=== PATIENT | male | born 1960 | race Caucasian/White ===

== ENCOUNTER 2019-03-06 23:52 | Observation (INO) | payer OTHER ==
[2019-03-07 01:05] LABS: Protime INR 1.07
[2019-03-07 01:07] LABS: Hematocrit 45.2 % (39.6-49.0); Lymphocytes % 29.5 % (15.3-44.8); MPV 8.5 fL (7.6-11.3); RBC Red Blood Cell Count 4.76 M/uL (4.33-5.43)
[2019-03-07] MEDS ORDERED: NITROGLYCERIN 0.4 MG/TAB SL ONE (01:27)
[2019-03-07 01:31] LABS: ALT/SGPT 18 U/L (12-78); AST/SGOT 18 U/L (15-37); Albumin 4.3 g/dL (3.4-5.0); Alkaline Phosphatase 67 U/L (45-117); BUN Blood Urea Nitrogen 14 mg/dL (7-18); Bicarbonate 30 mmol/L (21-32); Bilirubin Direct 0.1 mg/dL (0-0.2); Bilirubin Total 0.5 mg/dL (0.2-1.0); Glucose Level 86 mg/dL (74-106); Magnesium 2.1 mg/dL (1.8-2.4); NT PRO-BNP 48 pg/mL (<125); Potassium 3.7 mmol/L (3.5-5.1); Protein, Total 7.6 g/dL (6.4-8.2); Sodium Level 136 mmol/L (136-145); Troponin (Emerg Dept Use Only) < 0.02 ng/mL (0.0-0.045)
[2019-03-07] MEDS ORDERED: ACETAMINOPHEN 500 MG TAB PO PRN (03:35)
[2019-03-07] MEDS ORDERED: MORPHINE 4 MG/ML SYR IV PRN (03:35)
[2019-03-07 04:43] VITALS: O2SAT 97
--- NOTE | 2019-03-07 05:45 | EDPHYS ---
Physician Documentation [facility] Name: Mikhail Herrera Age: 58 yrs Sex: Male : 1960 Arrival Date: 03/06/2019 Time: 23:54 Bed 8 Private MD: ED Physician Tolu Hadley HPI: 03/07 02:50 This 58 yrs old Male presents to ER via Ambulatory with complaints of Chest Pain. tw4 02:50 The patient or guardian reports chest pain that is located primarily in the anterior tw4 chest wall. Onset: today. The pain does not radiate. Associated signs and symptoms: The patient has no apparent associated signs or symptoms. The chest pain is described as dull. Duration: The patient or guardian reports a single episode. Severity of pain: At its worst the pain was moderate in the emergency department the pain is unchanged. The patient has not experienced similar symptoms in the past. Historical: - Allergies: 00:19 No Known Allergies; rv - PMHx: 00:19 Cancer; Fibromyalgia; Hypertension; rv - PSHx: 00:19 Tonsillectomy; rv - Immunization history:: Adult Immunizations not up to date. - Coronavirus screen:: The patient has NOT traveled to [place], [place], or [place] in the past 14 days. Proceed with normal triage process as indicated. The patient has NOT had contact with known/suspected case of Coronavirus? Proceed with normal triage procedures. - Social history:: Smoking status: Patient reports the use of cigarette tobacco products, smokes one pack cigarettes per day. - Ebola Screening: : No symptoms or risks identified at this time. ROS: 02:48 Constitutional: Negative for fever, chills, and weight loss, Eyes: Negative for injury, tw4 pain, redness, and discharge, Respiratory: Negative for shortness of breath, cough, wheezing, and pleuritic chest pain, Abdomen/GI: Negative for abdominal pain, nausea, vomiting, diarrhea, and constipation, Back: Negative for injury and pain. 02:48 MS/Extremity: Negative for injury and deformity, Skin: Negative for injury, rash, and discoloration, Neuro: Negative for headache, weakness, numbness, tingling, and seizure. 02:48 Cardiovascular: Positive for chest pain, Negative for edema, orthopnea, palpitations, paroxysmal nocturnal dyspnea. Exam: 02:48 Constitutional: This is a well developed, well nourished patient who is awake, alert, tw4 and in no acute distress. Head/Face: Normocephalic, atraumatic. Chest/axilla: Normal chest wall appearance and motion. Nontender with no deformity. No lesions are appreciated. Cardiovascular: Regular rate and rhythm with a normal S1 and S2. No gallops, murmurs, or rubs. Normal PMI, no JVD. No pulse deficits. Respiratory: Lungs have equal breath sounds bilaterally, clear to auscultation and percussion. No rales, rhonchi or wheezes noted. No increased work of breathing, no retractions or nasal flaring. Abdomen/GI: Soft, non-tender, with normal bowel sounds. No distension or tympany. No guarding or rebound. No evidence of tenderness throughout. Back: No spinal tenderness. No costovertebral tenderness. Full range of motion. MS/ Extremity: Pulses equal, no cyanosis. Neurovascular intact. Full, normal range of motion. Neuro: Awake and alert, GCS 15, oriented to person, place, time, and situation. Cranial nerves II-XII grossly intact. Motor strength 5/5 in all extremities. Sensory grossly intact. Cerebellar exam normal. Normal gait. Vital Signs: 00:17 BP 168 / 91; Pulse 61; Resp 13; Temp 98.4; Pulse Ox 100% ; Weight 58.51 kg; Pain 6/10; rv 00:30 BP 177 / 89; Pulse 57; Resp 16; Pulse Ox 98% on R/A; rv 01:00 BP 144 / 95; Pulse 71; Resp 18; Pulse Ox 99% ; rv 01:30 BP 153 / 105; Pulse 71; Resp 18; Pulse Ox 99% on R/A; rv MDM: 00:20 Patient medically screened. tw4 02:59 Differential diagnosis: acute myocardial infarction, acute pericarditis, coronary tw4 artery disease myocarditis, pericarditis, pneumonia, pulmonary embolus, stable angina, unstable angina. HEART Score: History: Moderately Suspicious (1), ECG: Normal (0), Age: Risk Factors: No Risk Factors Known (0), Troponin: < or = 1 x Normal Limit (0). The patient was given aspirin in the Emergency Department. Data reviewed: vital signs, nurses notes. Data interpreted: Pulse oximetry: Interpretation: normal. Counseling: I had a detailed discussion with the patient and/or guardian regarding: the historical points, exam findings, and any diagnostic results supporting the discharge/admit diagnosis, lab results, radiology results. Physician consultation: Ana Laura Lin MD regarding admission, to the telemetry unit. patient's condition, and will see patient in ED. 03/07 00:07 Order name: Basic Metabolic Panel; Complete Time: 02:10 03/07 02:16 Interpretation: Normal except: GFR 88. 03/07 00:07 Order name: CBC with Diff; Complete Time: 02:10 03/07 02:16 Interpretation: Within normal limits. 03/07 00:07 Order name: LFT's; Complete Time: 02:10 03/07 02:16 Interpretation: Within normal limits. 03/07 00:07 Order name: Magnesium; Complete Time: 02:10 03/07 02:16 Interpretation: Within normal limits: MG 2.1. 03/07 00:07 Order name: PT-INR; Complete Time: 02:10 03/07 02:16 Interpretation: Normal except: PT 12.6. 03/07 00:07 Order name: Troponin (emerg Dept Use Only); Complete Time: 02:10 03/07 02:16 Interpretation: Within normal limits: TROPED < 0.02. 03/07 00:07 Order name: XRAY Chest (1 view) tw 03/07 01:37 Order name: NT PRO-BNP; Complete Time: 02:10 [facility] 03/07 02:16 Interpretation: Within normal limits: NT PRO-BNP 48. 03/07 05:37 Order name: Echo with Doppler EDFL 03/07 05:37 Order name: Troponin I EDFL 03/07 05:37 Order name: Troponin I EDFL 03/07 05:37 Order name: Troponin I EDFL 03/07 14:26 Order name: NM EDFL 03/07 00:07 Order name: EKG; Complete Time: 00:09 03/07 00:07 Order name: Cardiac monitoring; Complete Time: 00:15 03/07 00:07 Order name: EKG - Nurse/Tech; Complete Time: 00:15 03/07 00:07 Order name: IV Saline Lock; Complete Time: 00:28 03/07 00:07 Order name: Labs collected and sent; Complete Time: 00:03/07 00:07 Order name: O2 Per Protocol; Complete Time: 00:4 03/07 00:07 Order name: O2 Sat Monitoring; Complete Time: 00:28 4 03/07 05:37 Order name: CONS Physician Consult EDFL 03/07 05:37 Order name: Heart Healthy EDFL 03/07 05:37 Order name: EKG Electrocardiogram EDMS 03/07 05:37 Order name: EKG Electrocardiogram EDFL EC:50 Rate is 56 beats/min. Rhythm is regular, Sinus bradycardia. QRS [place] is Normal. IN tw4 interval is normal. QRS interval is normal. QT interval is normal. No Q waves. T waves are Peaked in leads V2, V3, V4, V5, V6. No ST changes noted. Clinical impression: NSR w/ Non-specific ST/T Changes and Sinus bradycardia. Interpreted by me. Reviewed by me. Administered Medications: 01:25 Drug: Nitroglycerin 0.4 mg Route: Sublingual; rv 01:30 Drug: Nitroglycerin 0.4 mg Route: Sublingual; rv 03:05 Follow up: Response: Pain is decreased rv 03:05 Drug: Lovenox 1 mg/kg Route: Sub-Q; Site: abdomen; rv 04:06 Follow up: Response: No adverse reaction rv Disposition: 03/07/19 02:12 Hospitalization ordered by Ana Laura Lin for Inpatient Admission. Preliminary diagnosis are Angina pectoris, unspecified, Acute coronary syndrome. - Bed requested for Telemetry/MedSurg (Inpatient). - Status is Inpatient Admission. jl7 - Condition is Stable. - Problem is new. - Symptoms have improved. UTI on Admission? No Signatures: Dispatcher [employer] [facility] Sherry Carpenter RN RN dw Loretta Silva RN RN jl7 Tolu Hadley MD MD tw4 Joshua Huber RN RN rv Corrections: (The following items were deleted from the chart) 01:36 00:09 PROBNP+C.LAB.BRZ ordered. [facility] 03:41 02:12 Hospitalization Ordered by Ana Laura Lin MD for Inpatient Admission. Preliminary dw diagnosis is Angina pectoris, unspecified; Acute coronary syndrome. Bed requested for Telemetry/MedSurg (Inpatient). Status is Inpatient Admission. Condition is Stable. Problem is new. Symptoms have improved. UTI on Admission? No. tw4 13:53 03:41 03/07/2019 02:12 Hospitalization Ordered by Ana Laura Lin MD for Inpatient dw Admission. Preliminary diagnosis is Angina pectoris, unspecified; Acute coronary syndrome. Bed requested for [facility] ER HOLD. Status is Inpatient Admission. Condition is Stable. Problem is new. Symptoms have improved. UTI on Admission? No. dw 15:00 13:53 03/07/2019 02:12 Hospitalization Ordered by Ana Laura Lin MD for Inpatient jl7 Admission. Preliminary diagnosis is Angina pectoris, unspecified; Acute coronary syndrome. Bed requested for Telemetry/MedSurg (Inpatient). Status is Inpatient Admission. Condition is Stable. Problem is new. Symptoms have improved. UTI on Admission? No. dw
--- NOTE | 2019-03-07 05:45 | ER ---
Nurse's Notes [facility] Name: Mikhail Herrera Age: 58 yrs Sex: Male : 1960 Arrival Date: 03/06/2019 Time: 23:54 Bed 8 Private MD: Diagnosis: Angina pectoris, unspecified;Acute coronary syndrome Presentation: 03/07 00:16 Presenting complaint: Patient states: CHEST PAIN STARTED AT AROUND 10PM LAST NIGHT. ON rv OFF TIGHTNESS. AND MY NECK IS SORE ON THE LEFT SIDE AND ALSO MY LEFT ARM, AND HEADACHE. DENIES NAUSEA/VOMITING. Transition of care: patient was not received from another setting of care. Onset of symptoms was March 06, 2019 at 22:00. Risk Assessment: Do you want to hurt yourself or someone else? Patient reports no desire to harm self or others. Initial Sepsis Screen: Does the patient meet any 2 criteria? No. Patient's initial sepsis screen is negative. Does the patient have a suspected source of infection? No. Patient's initial sepsis screen is negative. Care prior to arrival: None. 00:16 Method Of Arrival: Ambulatory rv 00:16 Acuity: BC 3 rv Triage Assessment: 01:00 General: Appears in no apparent distress. Behavior is calm, cooperative. Pain: rv Complains of pain in chest. Historical: - Allergies: 00:19 No Known Allergies; rv - PMHx: 00:19 Cancer; Fibromyalgia; Hypertension; rv - PSHx: 00:19 Tonsillectomy; rv - Immunization history:: Adult Immunizations not up to date. - Coronavirus screen:: The patient has NOT traveled to [place], [place], or [place] in the past 14 days. Proceed with normal triage process as indicated. The patient has NOT had contact with known/suspected case of Coronavirus? Proceed with normal triage procedures. - Social history:: Smoking status: Patient reports the use of cigarette tobacco products, smokes one pack cigarettes per day. - Ebola Screening: : No symptoms or risks identified at this time. Screenin:59 Abuse screen: Denies threats or abuse. Denies injuries from another. Nutritional rv screening: No deficits noted. Tuberculosis screening: No symptoms or risk factors identified. Fall Risk None identified. Assessment: 00:58 Pain: Complains of pain in chest Pain radiates to NECK AND LEFT ARM Pain began 3 hours rv ago. Neuro: Level of Consciousness is awake, alert, obeys commands, Oriented to person, place, time, situation. Cardiovascular: Patient's skin is warm and dry. Rhythm is regular. Respiratory: Airway is patent. Derm: Skin is intact. 01:32 Reassessment: Patient appears in no apparent distress at this time. PATIENT COMPLAINING rv OF CHEST DISCOMFORT/TIGHTNESS AND LEFT ARM PAIN. GIVEN NITRO SUBLINGUAL. Vital Signs: 00:17 BP 168 / 91; Pulse 61; Resp 13; Temp 98.4; Pulse Ox 100% ; Weight 58.51 kg; Pain 6/10; rv 00:30 BP 177 / 89; Pulse 57; Resp 16; Pulse Ox 98% on R/A; rv 01:00 BP 144 / 95; Pulse 71; Resp 18; Pulse Ox 99% ; rv 01:30 BP 153 / 105; Pulse 71; Resp 18; Pulse Ox 99% on R/A; rv ED Course: 03/06 23:54 Patient arrived in ED. ag3 03/07 00:07 Tolu Hadley MD is Attending Physician. tw4 00:09 Joshua Huber RN is Primary Nurse. rv 00:17 Triage completed. rv 00:19 Arm band placed on Patient placed in the treatment room, on a stretcher, Patient rv notified of wait time. 00:30 Inserted saline lock: 20 gauge in left antecubital area, using aseptic technique. Blood ar5 collected. 01:00 Patient has correct armband on for positive identification. Placed in gown. Bed in low rv position. Call light in reach. hospital monitor on. Pulse ox on. NIBP on. 01:00 Patient maintains SpO2 saturation greater than 95% on room air. rv 01:23 XRAY Chest (1 view) In Process Unspecified. EDMS 02:10 Ana Laura Lin MD is Hospitalizing Provider. tw4 04:02 No provider procedures requiring assistance completed. Patient admitted, IV remains in rv place. Administered Medications: 01:25 Drug: Nitroglycerin 0.4 mg Route: Sublingual; rv 01:30 Drug: Nitroglycerin 0.4 mg Route: Sublingual; rv 03:05 Follow up: Response: Pain is decreased rv 03:05 Drug: Lovenox 1 mg/kg Route: Sub-Q; Site: abdomen; rv 04:06 Follow up: Response: No adverse reaction rv Outcome: 02:12 Decision to Hospitalize by Provider. tw4 04:05 Admitted to ER Hold. Please see [facility] for further documentation. rv 04:05 Condition: good 04:05 Discharge instructions given to patient, Instructed on the need for admit, Demonstrated understanding of instructions. 15:00 Patient left the ED. jl7 Signatures: Dispatcher [employer] EDMS Zari Pinto, hand alterations seamstress EKG Tat1 Loretta Silva RN RN jl7 Tolu Hadley MD MD tw4 Joshua Huber RN RN rv Alexandra Tran ag3 Amberly Washington ar5 Corrections: (The following items were deleted from the chart) 10:50 10:50 EKG done, by application technician. reviewed by Miguel A Torres MD at1 at1
[2019-03-07] MEDS ORDERED: METOPROLOL TAR 50 MG TAB PO SCH (06:00)
[2019-03-07] MEDS: ALPRAZOLAM 0.25 MG TABLET PO PRN ×2 (06:12→16:59)
[2019-03-07] MEDS ORDERED: METOPROLOL TAR 25 MG TAB ONE (06:14)
--- NOTE | 2019-03-07 06:45 | EKG ---
Test Date: 2019-03-07 Test Time: 00:09:07 Warehouse Processor: ORLANDA MEASUREMENT RESULTS: Intervals: Rate: 56 AR: 172 QRSD: 76 QT: 416 QTc: 401 [place]: P: 77 AR: 172 QRS: 68 T: 72 INTERPRETIVE STATEMENTS: Sinus bradycardia Minimal voltage criteria for LVH, may be normal variant Borderline ECG No previous ECG available for comparison Electronically Signed On 03-07-19 06:44:59 CONSULTATIVE SALES ASSOCIATE by Kevin Andrews
[2019-03-07] MEDS ORDERED: REGADENOSON 0.4 MG/5 ML SYR IV ONE (08:17)
--- NOTE | 2019-03-07 08:23 | RAD REPORT ---
EXAM DESCRIPTION: Rohan Single View03/07/2019 12:28 am CLINICAL HISTORY: Chest pain COMPARISON: none FINDINGS: Bilateral upper lobe volume loss. Lungs are hyperaerated. The lungs appear clear of acute infiltrate. The heart is normal size IMPRESSION: Bilateral upper lobe volume loss presumably chronic. Hyperaerated lungs indicate COPD If patient's symptoms persist PA and lateral chest series would be recommended
[2019-03-07] MEDS ORDERED: ASPIRIN EC 81 MG TAB PO ONE (08:54)
[2019-03-07] MEDS ORDERED: ENOXAPARIN 40 MG/0.4 ML SQ ONE (08:54)
[2019-03-07] MEDS ORDERED: ENOXAPARIN 40 MG/0.4 ML SQ SCH ×2 (09:00→21:00)
[2019-03-07] MEDS ORDERED: ASPIRIN EC 81 MG TAB PO SCH (09:00)
--- NOTE | 2019-03-07 14:08 | ECHO ---
HEIGHT: 5 ft 5 in WEIGHT: 58 lb 8.16 oz DATE OF STUDY: 03/07/[address]: Ana Laura Lin MD 2-DIMENSIONAL: YES M.MODE: YES DOPPLER: YES COLOR FLOW: YES TDS: NO PORTABLE: NO DEFINITY: NO BUBBLE STUDY: NO DIAGNOSIS: CHEST PAIN CARDIAC HISTORY: CATHERIZATION: YES SURGERY: NO PROSTHETIC VALVE: NO PACEMAKER: NO MEASUREMENTS (cm) DIASTOLIC (NORMALS) SYSTOLIC (NORMALS) IVSd 0.8 (0.6-1.2) LA Diam 2.8 (1.9-4.0) LVEF 68% LVIDd 3.7 (3.5-5.7) LVIDs 2.3 (2.0-3.5) %FS 37% LVPWd 0.8 (0.6-1.2) Ao Diam 2.6 (2.0-3.7) 2 DIMENSIONAL ASSESSMENT: RIGHT ATRIUM: NORMAL LEFT ATRIUM: NORMAL RIGHT VENTRICLE: NORMAL LEFT VENTRICLE: NORMAL TRICUSPID VALVE: NORMAL MITRAL VALVE: NORMAL PULMONIC VALVE: NORMAL AORTIC VALVE: NORMAL PERICARDIAL EFFUSION: NONE AORTIC ROOT: NORMAL LEFT VENTRICULAR WALL MOTION: NORMAL. DOPPLER/COLOR FLOW: NORMAL. COMMENTS: NORMAL 2D ECHO WITH DOPPLER. NO WALL MOTION ABNORMALITY. NO EFFUSION. TECHNOLOGIST: DENISE AGUILAR
--- NOTE | 2019-03-07 14:20 | RAD REPORT ---
EXAM DESCRIPTION: NM - Rest Stress Cardiac Imaging - 03/07/2019 2:10 pm CLINICAL HISTORY: Chest pain. COMPARISON: None. TECHNIQUE: The patient was administered approximately 10mCi of Tc 99m Sestamibi prior to resting SPE CT imaging of the heart. The patient was then administered approximately 30 mCi of Tc 99m Sestamibi f ollowing exercise or pharmacologic stress. Multiplanar SPECT images were reviewed. FINDINGS: Small area of diminished radiotracer uptake involves the inferior left ventricular myocar dium on rest and stress images. Most likely this is secondary to attenuation from the diaphragm. Remainder of the left ventricular myocardium demonstrates normal radiotracer uptake on rest and stres s sequences. The left ventricular ejection fraction equals 56% IMPRESSION: Negative for a myocardial perfusion defect
--- NOTE | 2019-03-07 14:30 | CON ---
Date of Consultation: 03/07/2019 The patient was admitted on 03/07/[address] Lin. I saw the patient on 03/07/2019. Reason For Consultation: Chest pain. History Of Present Illness: The patient is a 58-year-old male, has a history of hypertension, fibrom yalgia, and head and neck cancer that has been treated and cured. He comes in with chest pain that i s midepigastric, sharp, stabbing, radiating to the back without any nausea, vomiting, diaphoresis, PN D, orthopnea, pedal edema, palpitation, or syncope. Apparently at home, his pressure was 212. Allergies: NEGATIVE. Review of Systems: Negative. Social History: Positive for history of tobacco use. Medications: At home are none. Physical Examination: Vital Signs: Stable. Afebrile. HEENT: Negative. Neck: Supple with no bruit. Chest: Clear to auscultation and percussion. Cardiac: Revealed a regular rhythm and rate. No murmurs, gallops, or rubs. Abdomen: Benign. Extremities: Revealed no clubbing, cyanosis, or edema. Diagnostic Data: EKG was normal. Troponin was negative. Impression And Plan: 1.Chest pain, atypical, most likely secondary to hypertension. 2.History of cancer, ear, nose and throat. 3.Fibromyalgia. An echocardiogram and Lexiscan have been ordered on Mr. Herrera. We will see w hat those show prior to making final decisions. He should be going home on some antihypertensive the rapy, either a beta ginger or an ANAID inhibitor. NB/MODL Voice ID: [id number] Report ID: [id number]
[2019-03-07] MEDS ORDERED: HYDROCODONE/APAP 5/325 MG TAB PO PRN (16:55)
--- NOTE | 2019-03-07 17:42 | P.DS ---
Admission Date: 03/07/19 Discharge Date: 03/07/19 Disposition: ROUTINE DISCHARGE Discharge Condition: GOOD Consultations: Cardiology - Problems (1) Hypertension Current Visit: Yes Status: Acute (2) History of cancer Current Visit: Yes Status: Acute Brief History of Present Illness: 58-year-old gentleman presented to the emergency department with a complaint of chest pain radiating to involve his left arm and left neck and the back.He reports a history of fibromyalgia. Initial troponin in the ED was negative. EKG demonstrated sinus bradycardia, no ischemic changes Patient was placed under observation for acute coronary syndrome rule out. Hospital Course: He was placed under observation in telemetry. Troponin trended came back negative. Patient was evaluated by cardiology. Nuclear stress test and echocardiogram were performed which were negative for ischemia. His blood pressure was severely elevated in the ED. He was given 2 sublingual nitroglycerin in the ED which improved his blood pressure. Noted patient has bradycardia. Patient is on lisinopril 10 mg daily which has been increased to 20 mg daily to control his blood pressure. Patient deemed clinically stable for discharge per cardiology. He is also discharged with daily aspirin Vital Signs/Physical Exam: Temp Pulse Resp BP Pulse Ox 97.8 F 51 15 157/94 H 99 03/07/19 12:00 03/07/19 12:00 03/07/19 12:00 03/07/19 12:00 03/07/19 12:00 General: Alert, In no apparent distress, Oriented x3 HEENT: Mucous membr. moist/pink, Sclerae nonicteric Neck: Supple, JVD not distended Respiratory: Clear to auscultation bilaterally, Normal air movement Cardiovascular: No edema, Regular rate/rhythm, Normal S1 S2 Capillary refill: <2 Seconds Gastrointestinal: Normal bowel sounds, Soft and benign, No tenderness Musculoskeletal: No swelling, No erythema Integumentary: No rashes Neurological: Normal speech, Normal strength at 5/5 x4 extr Laboratory Data at Discharge: WBC 6.7 K/uL (4.3-10.9) 03/07/19 00:27 Hgb 15.3 g/dL (13.6-17.9) 03/07/19 00:27 Hct 45.2 % (39.6-49.0) 03/07/19 00:27 Plt Count 272 K/uL (152-406) 03/07/19 00:27 PT 12.6 SECONDS (9.5-12.5) H 03/07/19 00:27 INR 1.07 03/07/19 00:27 Sodium 136 mmol/L (136-145) 03/07/19 00:27 Potassium 3.7 mmol/L (3.5-5.1) 03/07/19 00:27 BUN 14 mg/dL (7-18) 03/07/19 00:27 Creatinine 0.89 mg/dL (0.55-1.3) 03/07/19 00:27 Glucose 86 mg/dL (74-106) 03/07/19 00:27 Magnesium 2.1 mg/dL (1.8-2.4) 03/07/19 00:27 Total Bilirubin 0.5 mg/dL (0.2-1.0) 03/07/19 00:27 AST 18 U/L (15-37) 03/07/19 00:27 ALT 18 U/L (12-78) 03/07/19 00:27 Alkaline Phosphatase 67 U/L (45-117) 03/07/19 00:27 Troponin I < 0.02 ng/mL (0.0-0.045) 03/07/19 11:56 Home Medications: Aspirin [Aspirin EC 81 MG] 81 mg PO DAILY #30 tablet. 03/07/19 lisinopriL [Lisinopril] 20 mg PO DAILY #30 tablet 03/07/19 New Medications: Aspirin [Aspirin EC 81 MG] 81 mg PO DAILY #30 tablet. lisinopriL [Lisinopril] 20 mg PO DAILY #30 tablet Diet: [facility] Activity: Ad arjeev
[2019-03-07 18:03] VITALS: BP 135/87; TEMP 98.7
--- NOTE | 2019-03-08 12:54 | P.HP ---
Certification for Inpatient Patient admitted to: Observation With expected LOS: <2 Midnights Patient will require the following post-hospital care: None Practitioner: I am a practitioner with admitting privileges, knowledge of patient current condition, hospital course, and medical plan of care. Services: Services provided to patient in accordance with Admission requirements found in Title 42 Section 412.3 of the Code of Federal Regulations Patient History Date of Service: 03/07/19 Reason for admission: CHEST PAIN RULE OUT ACUTE MYOCARDIAL INFARCTION History of Present Illness: PATIENT IS A 58-YEAR-OLD GENTLEMAN WHO CAME TO THE HOSPITAL WITH CHEST DISCOMFORT. PATIENT HAS A HISTORY OF SQUAMOUS CELL CARCINOMA AND HYPERTENSION AND HAS BEEN FOLLOWING UP WITH HIS ONCOLOGIST WHO HAS PRESCRIBED HIS MEDICATIONS. PATIENT CAME TO THE HOSPITAL FOR FURTHER EVALUATION. IN THE ER PATIENT'S INITIAL TROPONINS AND EKG HAVE BEEN NEGATIVE. HIS BLOOD PRESSURE ARE ELEVATED. PATIENT WILL BE ADMITTED TO THE HOSPITAL FOR FURTHER EVALUATION. Allergies No Known Allergies Allergy (Unverified 03/07/19 06:32) Home Medications: Aspirin [Aspirin EC 81 MG] 81 mg PO DAILY #30 tablet. 03/07/19 lisinopriL [Lisinopril] 20 mg PO DAILY #30 tablet 03/07/19 - Past Medical/Surgical History Diabetic: No -: cancer -: fibromyalgia -: hypertension -: tonsillectomy - Family History Father Family History: Reviewed- Non-Contributory - Social History Smoking Status: Current every day smoker Place of Residence: Home Review of Systems 10-point ROS is otherwise unremarkable Physical Examination - Vital Signs Temperature: 98.7 F Blood Pressure: 135/87 Pulse: 57 Respirations: 20 Pulse Ox (%): 96 - Physical Exam General: Alert, In no apparent distress, Oriented x3 HEENT: Atraumatic, PERRLA, Mucous membr. moist/pink, EOMI, Sclerae nonicteric Neck: Supple, 2+ carotid pulse no bruit, No LAD, Without JVD or thyroid abnormality Respiratory: Clear to auscultation bilaterally, Normal air movement Cardiovascular: Regular rate/rhythm, Normal S1 S2, No murmurs Gastrointestinal: Normal bowel sounds, Soft and benign, Non-distended, No tenderness Musculoskeletal: No clubbing, No swelling, No tenderness Integumentary: No rashes Neurological: Normal gait, Normal speech, Normal strength at 5/5 x4 extr, Normal tone, Normal affect Lymphatics: No axilla or inguinal lymphadenopathy Assessment & Plan - Problems (Diagnosis) (1) Chest pain, rule out acute myocardial infarction Status: Acute (2) History of cancer Status: Acute (3) Hypertension Status: Acute - Plan 1. SERIAL TROPONINS AND EKG 2. CARDIOLOGY CONSULTATION 3. ECHOCARDIOGRAM AND INPATIENT STRESS TEST(PENDING CARDIOLOGY EVALUATION) 4. ANTI-PLATELET THERAPY, ANTI COAGULATION, BETA-DAVID, STATIN, AND O2 NEEDED 5. IV MORPHINE FOR PAIN 6. NITRO P.R.N. Discharge Plan: Home Plan to discharge in: 24 Hours - Advance Directives Does patient have a Living Will: No Does patient have a Durable POA for Healthcare: No - Code Status/Comfort Care Code Status Assessed: Yes Code Status: Full Code Critical Care: No Time Spent Managing PTS Care (In Minutes): 40
--- NOTE | 2019-03-08 13:49 | TREADPHA ---
DX: CHEST PAIN Date of Study: 03/07/2019 Ht: 5 5 Wt: 58 lb 8.16 oz Consulting Physician: ANALILIA MEDICATIONS: TYLENOL, ASPIRIN, LOVENOX, LOPRESSOR, NITROSTAT, LEVOTHROXINE, LISINOPRIL HISTORY: 58 YEAR OLD MALE WITH HISTORY OF HYPERTENSION, HYPOTHYROIDISM. PRESTENTED WITH EPISODE OF CHEST PAIN THAT RESOLVED. PHYSICIAL EXAMINATION: RESTING B.P.: 178/87 RESTING H.R.: 49 RESTING EKG: SINUS BRADYCARDIA PROTOCOL: LEXISCAN EXERCISE TIME: 3:30 B.P. AT PEAK STRESS: 133/89 IMPRESSION: LEXISCAN STRESS TEST PERFORMED. CARDIOLITE INJECTED PER PROTOCOL. NO SUPRAVENTRICULAR TACHYCARDIA, VENTRICULAR TACHYCARDIA, OR ARRYTHMIAS NOTED. PATIENT DENIED CHEST PAIN. TOLERATED WELL. PLEASE SEE NUCLEAR MEDICINE REPORT.
== END 2019-03-07 18:12 | disposition home or self-care (01) ==
LOC: ER 23:52 → ERHOLD 03-07 04:26 → 2ND 03-07 14:49
PROVIDERS: ADMIT Hospitalist; ATTEND Hospitalist
DX: R07.9 Chest pain, unspecified (principal); I10 Essential (primary) hypertension; M79.7 Fibromyalgia; Z85.828 Personal history of other malignant neoplasm of skin
CPT/HCPCS: 93005; 93017; 93306; 85025; 80048; 36415; 83735; 85610; 80076; 84484 ×3; 83880; 71045; 78452; 96372; 99285; J1650; J2785; A9500; G0378 ×2

== ENCOUNTER 2019-03-26 13:15 | Emergency (ER) | payer OTHER ==
--- OUTSIDE RECORDS SUMMARY | 2019-03-26 13:18 | XMS REPORT ---
:1960 [facility] Address [address] [place] [address] [address] Care Team Providers Name Role Phone ZENAIDA HOLDER Unavailable Unavailable Problems This patient has no known problems. Allergies, Adverse Reactions, Alerts This patient has no known allergies or adverse reactions. Medications This patient has no known medications. Results Test Description Test Time Test Comments Text Results Atomic Results Result Comments [facility] [address] [place] [address] Patient Name: SADIQ FALLON MR #: [id number] : 1960 Age/Sex: 56/M Acct #: VIEWS [id number] Req #: [id number] Adm Physician: Ordered by: ZENAIDA HOLDER MD Report #: [id number] Location: ER Room/Bed: _ Procedure: [id number] DX/KNEE LEFT THREE VIEWS Exam Date: 12/19/16 Exam Time: 1015 REPORT STATUS: Signed PROCEDURE: KNEE LEFT THREE VIEWS COMPARISON: None. INDICATIONS: RIGHT KNEE PAIN FROM INJURY FINDINGS: There are no fractures, dislocations, lytic or blastic lesions. The bones are well-mineralized. The soft-tissues are unremarkable. CONCLUSION: No acute radiographic abnormality. Dictated by: Crow Mejias M.D. on 12/19/2016 at 11:03 Electronically approved by: Crow Mejias M.D. on 12/19/2016 at 11:03 Dictated By: CROW MEJIAS MD 02 Transcribed By: KAMILLE on 12/19/161102 COPY TO: ZENAIDA HOLDER MD
--- NOTE | 2019-03-26 14:34 | ER ---
Nurse's Notes [facility] Name: Mikhail Herrera Age: 58 yrs Sex: Male : 1960 Arrival Date: 03/26/2019 Time: 13:17 Bed 28 Private MD: Diagnosis: Radiculopathy, cervical region Presentation: 03/26 13:29 Presenting complaint: Patient states: I have an old neck and back surgery, a few years ca1 after I had radiation on my upper body that messed with my bones. I have been having neck pains and headaches for about a year more on the last few months. I can't sleep. I turn my neck and it seems to to send an electric shock on my neck across my head all the way to the front. I have a schedule with a neurologist on the next month but I can't take it anymore. It is causing my BP to be high. Transition of care: patient was not received from another setting of care. Onset of symptoms was March 26, 2019. Risk Assessment: Do you want to hurt yourself or someone else? Patient reports no desire to harm self or others. Initial Sepsis Screen: Does the patient meet any 2 criteria? No. Patient's initial sepsis screen is negative. Does the patient have a suspected source of infection? No. Patient's initial sepsis screen is negative. Care prior to arrival: None. 13:29 Method Of Arrival: Ambulatory ca1 13:29 Acuity: BC 3 ca1 Triage Assessment: 14:19 General: Appears uncomfortable, Behavior is calm, cooperative. Pain: Complains of pain ls4 in neck Pain currently is 10 out of 10 on a pain scale. Neuro: No deficits noted. Cardiovascular: Denies chest pain, Heart tones S1 S2. Respiratory: Airway is patent Respiratory effort is even, unlabored, Musculoskeletal: Circulation, motion, and sensation intact. Capillary refill < 3 seconds, Range of motion: intact in all extremities. Historical: - Allergies: 13:37 No Known Allergies; ca1 - Home Meds: 13:37 Lisinopril Oral [Active]; levothyroxine oral [Active]; Hydroxyline [Active]; ca1 - PMHx: 13:37 Cancer; Fibromyalgia; Hypertension; ca1 - PSHx: 13:37 Tonsillectomy; ca1 - Immunization history:: Adult Immunizations up to date, Pneumococcal vaccine is not up to date, patient has never been vaccinated Flu vaccine is not up to date. - Coronavirus screen:: The patient has NOT traveled to [place] in the past 14 days. The patient has NOT had contact with known/suspected case of Coronavirus?. - Social history:: Smoking status: Patient reports the use of cigarette tobacco products, smokes one-half pack cigarettes per day. - Family history:: not pertinent. - Ebola Screening: : Patient negative for fever greater than or equal to 101.5 degrees Fahrenheit, and additional compatible Ebola Virus Disease symptoms Patient denies exposure to infectious person Patient denies travel to an Ebola-affected area in the 21 days before illness onset No symptoms or risks identified at this time. - Hospitalizations: : No recent hospitalization is reported. Screenin:54 Abuse screen: Denies threats or abuse. Denies injuries from another. Nutritional ls4 screening: No deficits noted. Tuberculosis screening: No symptoms or risk factors identified. Fall Risk None identified. Assessment: 14:40 Neuro: Level of Consciousness is awake, alert, obeys commands, Oriented to person, ls4 place, time, situation, Meteorological Equipment Repairer are equal bilaterally Moves all extremities. Gait is steady, Speech is normal, Facial symmetry appears normal, Pupils are PERRLA, Intact Reports neck pain . Cardiovascular: Clubbing of nail beds is present. Respiratory: Musculoskeletal: Circulation, motion, and sensation intact. Capillary refill < 3 seconds, Range of motion: intact in all extremities. Vital Signs: 13:37 BP 172 / 92; Pulse 71; Resp 16 S; Temp 97.8(O); Pulse Ox 100% on R/A; Weight 58.97 kg ca1 (R); Height 5 ft. 8 in. (172.72 cm) (R); Pain 10/10; 13:37 Body Mass Index 19.77 (58.97 kg, 172.72 cm) ca1 ED Course: 13:17 Patient arrived in ED. rg4 13:34 Triage completed. ca1 13:37 Arm band placed on right wrist. ca1 13:53 Sharlene Kolb, RN is Primary Nurse. ls4 13:54 Patient has correct armband on for positive identification. Bed in low position. Call ls4 light in reach. Side rails up X 1. 13:54 No provider procedures requiring assistance completed. ls4 14:16 Miguel A Torres MD is Attending Physician. rn 14:31 Uvaldo Wilburn MD is Referral Physician. rn 14:40 Patient did not have IV access during this emergency room visit. ls4 Administered Medications: No medications were administered Outcome: 14:32 Discharge ordered by MD. rn 14:40 Discharged to home ambulatory. ls4 14:40 Condition: good 14:40 Discharge instructions given to patient, Instructed on discharge instructions, follow up and referral plans. medication usage, safety practices, Demonstrated understanding of instructions, follow-up care, medications, Prescriptions given X 3. 14:41 Patient left the ED. ls4 Signatures: Miguel A Torres MD MD rn Garcia, Rubi rg4 Sharlene Kolb RN RN ls4 Ellie Day RN RN ca1
--- NOTE | 2019-03-26 14:35 | EDPHYS ---
Physician Documentation [facility] Name: Mikhail Herrera Age: 58 yrs Sex: Male : 1960 Arrival Date: 03/26/2019 Time: 13:17 Bed 28 Private MD: ED Physician Miguel A Torres HPI: 03/26 14:26 This 58 yrs old Male presents to ER via Ambulatory with complaints of Neck rn Pain, >24Hrs Old. 14:26 The patient or guardian complains of pain. The symptoms are located diffusely. Onset: rn The symptoms/episode began/occurred. Associated signs and symptoms: Pertinent positives: tingling, Pertinent negatives: fever, bladder incontinence, bowel incontinence, weakness. The pain radiates to the right arm and left arm. Modifying factors: The symptoms are alleviated by nothing. the symptoms are aggravated by movement. Severity of symptoms: At their worst the symptoms were moderate, in the emergency department the symptoms have improved. The patient has experienced similar episodes in the past. Reports chronic neck pain for > 2 years, no acute injuries, reports 2/2 radiation therapy and old accident. Reports shoots down both arms, no weakness, + intermittent tingling. No bowel/bladder problems. Used to get soma from a physician that helped, but no longer gets it. Reports takes motrin and aleve at home. . Historical: - Allergies: 13:37 No Known Allergies; ca1 - Home Meds: 13:37 Lisinopril Oral [Active]; levothyroxine oral [Active]; Hydroxyline [Active]; ca1 - PMHx: 13:37 Cancer; Fibromyalgia; Hypertension; ca1 - PSHx: 13:37 Tonsillectomy; ca1 - Immunization history:: Adult Immunizations up to date, Pneumococcal vaccine is not up to date, patient has never been vaccinated Flu vaccine is not up to date. - Coronavirus screen:: The patient has NOT traveled to [place] in the past 14 days. The patient has NOT had contact with known/suspected case of Coronavirus?. - Social history:: Smoking status: Patient reports the use of cigarette tobacco products, smokes one-half pack cigarettes per day. - Family history:: not pertinent. - Ebola Screening: : Patient negative for fever greater than or equal to 101.5 degrees Fahrenheit, and additional compatible Ebola Virus Disease symptoms Patient denies exposure to infectious person Patient denies travel to an Ebola-affected area in the 21 days before illness onset No symptoms or risks identified at this time. - Hospitalizations: : No recent hospitalization is reported. ROS: 14:26 Constitutional: Negative for fever, chills, and weight loss, Eyes: Negative for injury, rn pain, redness, and discharge, Neck: + neck pain, negative for injury Cardiovascular: Negative for chest pain, palpitations, and edema, Respiratory: Negative for shortness of breath, cough, wheezing, and pleuritic chest pain, Abdomen/GI: Negative for abdominal pain, nausea, vomiting, diarrhea, and constipation, MS/Extremity: Negative for injury and deformity, Skin: Negative for injury, rash, and discoloration, Neuro: Negative for headache, weakness, and seizure. Exam: 14:26 Constitutional: This is a well developed, well nourished patient who is awake, alert, rn and in no acute distress. Ambulatory Head/Face: Normocephalic, atraumatic. Eyes: Pupils equal round and reactive to light, extra-ocular motions intact. Lids and lashes normal. Conjunctiva and sclera are non-icteric and not injected. Cornea within normal limits. Periorbital areas with no swelling, redness, or edema. Neck: Trachea midline, no masses palpated, and no cervical lymphadenopathy. Limited extension of neck, good flexion. No focal tenderness. Cardiovascular: Regular rate and rhythm. No pulse deficits. Back: No spinal tenderness. No costovertebral tenderness. Full range of motion. MS/ Extremity: Pulses equal, no cyanosis. Neurovascular intact. Full, normal range of motion. Equal circumference. Neuro: Awake and alert, GCS 15, oriented to person, place, time, and situation. Cranial nerves II-XII grossly intact. Motor strength 5/5 in all extremities. Sensory grossly intact. Cerebellar exam normal. Normal gait. Vital Signs: 13:37 BP 172 / 92; Pulse 71; Resp 16 S; Temp 97.8(O); Pulse Ox 100% on R/A; Weight 58.97 kg ca1 (R); Height 5 ft. 8 in. (172.72 cm) (R); Pain 10/10; 13:37 Body Mass Index 19.77 (58.97 kg, 172.72 cm) ca1 MDM: 14:16 Patient medically screened. rn 14:26 Differential diagnosis: Cervical Discogenic Pain Cervical Raiculopathy Cervical rn Spondylosis cervical strain, radiculopathy, muscle spasm. Data reviewed: vital signs, nurses notes, and as a result, I will discharge patient. Counseling: I had a detailed discussion with the patient and/or guardian regarding: the historical points, exam findings, and any diagnostic results supporting the discharge/admit diagnosis, the need for outpatient follow up, to return to the emergency department if symptoms worsen or persist or if there are any questions or concerns that arise at home. Special discussion: I discussed with the patient/guardian in detail that at this point there is no indication for admission to the hospital. It is understood, however, that if the symptoms persist or worsen the patient needs to return immediately for re-evaluation. Further emergent ED testing is not indicated at this point in time. I discussed with the patient/guardian in detail the need to arrange with the PCP or specialist further outpatient testing, MRI, Based on the history and exam findings, there is no indication for further emergent testing or inpatient evaluation. I discussed with the patient/guardian the need to see the neurologist for further evaluation of the symptoms. ED course: No acute findings or symptoms, no signs of cord compression, no indication for emergent MRI, will dc home with neuro f/u for further recs and likely outpt MRI.. Administered Medications: No medications were administered Disposition: 03/26/19 14:32 Discharged to Home. Impression: Radiculopathy, cervical region. - Condition is Stable. - Discharge Instructions: Cervical Radiculopathy. - Prescriptions for Ultram 50 mg Oral Tablet - take 1 tablet by ORAL route every 6-8 hours As needed; 20 tablet. Cyclobenzaprine 10 mg Oral Tablet - take 1 tablet by ORAL route every 8-12 hours As needed; 20 tablet. Medrol (Dante) 4 mg Oral Tablets, Dose Pack - take 1 tablet by ORAL route as directed - follow package instructions; 1 packet. - Medication Reconciliation Form, Thank You Letter, Antibiotic Education, Prescription Opioid Use form. - Follow up: Uvaldo Wilburn MD; When: As needed; Reason: Recheck today's complaints, Re-evaluation by your physician. - Problem is chronic. - Symptoms have improved. Signatures: Miguel A Torres MD MD rn Stewart, Lisa, RN RN ls4 Ellie Day RN RN ca1 Corrections: (The following items were deleted from the chart) 14:41 14:32 03/26/2019 14:32 Discharged to Home. Impression: Radiculopathy, cervical region. ls4 Condition is Stable. Forms are Medication Reconciliation Form, Thank You Letter, Antibiotic Education, Prescription Opioid Use. Follow up: Uvaldo Wilburn; When: As needed; Reason: Recheck today's complaints, Re-evaluation by your physician. Problem is chronic. Symptoms have improved. rn
[2019-03-26 15:00] VITALS: BP 172/92; TEMP 97.8; O2SAT 100
== END 2019-03-26 14:41 | disposition home or self-care (01) ==
LOC: ER 13:15
DX: M54.12 Radiculopathy, cervical region (principal); I10 Essential (primary) hypertension; F17.210 Nicotine dependence, cigarettes, uncomplicated
CPT/HCPCS: 99282

== ENCOUNTER 2019-04-07 00:57 | Emergency (ER) | payer OTHER ==
--- OUTSIDE RECORDS SUMMARY | 2019-04-07 01:00 | XMS REPORT ---
:1960 [facility] Address [address] [place] [address] [address] Care Team Providers Name Role Phone ZENAIDA HOLDER Unavailable Unavailable Problems This patient has no known problems. Allergies, Adverse Reactions, Alerts This patient has no known allergies or adverse reactions. Medications This patient has no known medications. Results Test Description Test Time Test Comments Text Results Atomic Results Result Comments [facility] [address] [place] [address] Patient Name: SADIQ FALLON MR #: [id number] : 1960 Age/Sex: 56/M Acct #: VIEWS [id number] Req #: [id number] Adm Physician: Ordered by: ZENAIDA HOLDER MD Report #: [id number] Location: ER Room/Bed: _ Procedure: [id number] DX/KNEE LEFT THREE VIEWS Exam Date: 12/19/16 [...]
[2019-04-07] MEDS ORDERED: HYDRALAZINE HCL 20 MG/ML VIAL ONE (01:28)
[2019-04-07] MEDS ORDERED: ASPIRIN 81 MG CHEWABLE TABLET ONE (01:28)
[2019-04-07] MEDS ORDERED: LIDOCAINE VISCOUS 2% SOLN 15 ML UDC ONE (01:48)
[2019-04-07] MEDS ORDERED: MAGNE/ALUM HYDROXD 30 ML UCUP ONE (01:48)
[2019-04-07 02:01] LABS: Protime INR 1.08
[2019-04-07 02:03] LABS: Absolute Lymphocytes (CBC) 1.8 K/uL (0.7-4.9); Basophils % 0.5 % (0-1.3); Lymphocytes % 20.9 % (15.3-44.8); MPV 7.7 fL (7.6-11.3); RBC Red Blood Cell Count 4.95 M/uL (4.33-5.43)
[2019-04-07 02:21] LABS: ALT/SGPT 20 U/L (12-78); AST/SGOT 21 U/L (15-37); Albumin 4.6 g/dL (3.4-5.0); Alkaline Phosphatase 71 U/L (45-117); BUN Blood Urea Nitrogen 12 mg/dL (7-18); Bicarbonate 29 mmol/L (21-32); Bilirubin Direct 0.1 mg/dL (0-0.2); Bilirubin Total 0.6 mg/dL (0.2-1.0); Glucose Level 92 mg/dL (74-106); Magnesium 1.9 mg/dL (1.8-2.4); NT PRO-BNP 97 pg/mL (<125); Potassium 3.4 mmol/L (3.5-5.1); Protein, Total 8.5 g/dL (6.4-8.2); Sodium Level 129 mmol/L (136-145); Troponin (Emerg Dept Use Only) < 0.02 ng/mL (0.0-0.045)
--- NOTE | 2019-04-07 02:47 | ER ---
Nurse's Notes [facility] Name: Mikhail Herrera Age: 58 yrs Sex: Male : 1960 Arrival Date: 04/07/2019 Time: : Bed 8 Private MD: Diagnosis: Hypertensive Urgency Presentation: 04/06 01:13 Chief complaint: Patient states: he wasn't feeling right today and checked his blood bb pressure tonight which was 182/102 he has a slight headache and he has been feeling intermittent fluttering in his heart for a while. Coronavirus screen: The patient has NOT traveled to [place] in the past 14 days. Proceed with normal triage procedures. Ebola Screen: No symptoms or risks identified at this time. Initial Sepsis Screen: Does the patient meet any 2 criteria? No. Patient's initial sepsis screen is negative. Does the patient have a suspected source of infection? No. Patient's initial sepsis screen is negative. Risk Assessment: Do you want to hurt yourself or someone else? Patient reports no desire to harm self or others. 01:13 Method Of Arrival: Ambulatory bb 01:13 Acuity: BC 2 bb 01:24 Onset of symptoms was April 06, 2019. jd3 Historical: - Allergies: 01:20 No Known Allergies; bb - Home Meds: 01:20 levothyroxine oral [Active]; lisinopril Oral [Active]; Hydroxyzine Oral [Active]; bb aspirin 81 mg Oral chew 1 tab once daily [Active]; - PMHx: 01:20 Cancer; atypical squamous cell; Fibromyalgia; Hypertension; Hypothyroidism; bb - PSHx: 01:20 2 throat surgeries with tonsillectomy; Knee surgery; left cataract; right hand; bb - Immunization history:: Adult Immunizations up to date. - Social history:: Smoking status: Patient reports the use of cigarette tobacco products, smokes one-half pack cigarettes per day, Patient uses alcohol, occasionally. street drugs, marijuana. Screenin:24 Abuse screen: Denies threats or abuse. Nutritional screening: No deficits noted. jd3 Tuberculosis screening: No symptoms or risk factors identified. Fall Risk Ambulatory Aid- None/Bed Rest/Nurse Assist (0 pts). Gait- Normal/Bed Rest/Wheelchair (0 pts) Mental Status- Oriented to own ability (0 pts). Total Mayers Fall Scale indicates No Risk (0-24 pts). Assessment: 01:22 General: Appears in no apparent distress. uncomfortable, Behavior is calm, cooperative, jd3 appropriate for age. Pain: Complains of pain in head and chest Quality of pain is described as aching, pressure. Neuro: Level of Consciousness is awake, alert, obeys commands, Oriented to person, place, time, situation. Cardiovascular: Heart tones S1 S2 present Capillary refill < 3 seconds Patient's skin is warm and dry. Rhythm is regular. Respiratory: Airway is patent Respiratory effort is even, unlabored, Respiratory pattern is regular, symmetrical, Breath sounds are clear bilaterally. Denies cough, shortness of breath. GI: Abdomen is round non-distended, Abd is soft and non tender X 4 quads. Reports nausea, Patient currently denies abdominal pain, constipation, diarrhea, vomiting. : No signs and/or symptoms were reported regarding the genitourinary system. EENT: No signs and/or symptoms were reported regarding the EENT system. Derm: Skin is intact, Skin is dry, Skin is normal, Skin temperature is warm. Musculoskeletal: Circulation, motion, and sensation intact. Range of motion: intact in all extremities. 02:50 Reassessment: Patient appears in no apparent distress at this time. Patient and/or jd3 family updated on plan of care and expected duration. Pain level reassessed. Patient is alert, oriented x 3, equal unlabored respirations, skin warm/dry/pink. awaiting ride for discharge. Vital Signs: 01:13 BP 188 / 110; Pulse 72; Resp 16 S; Temp 97.5(O); Pulse Ox 100% on R/A; Weight 58.97 kg bb (R); Height 5 ft. 8 in. (172.72 cm) (R); Pain 0/10; 01:20 BP 188 / 110; Pulse 72; Resp 16 S; Temp 97.5(O); Pulse Ox 100% on R/A; Weight 58.97 kg bb (R); Height 5 ft. 8 in. (172.72 cm) (R); Pain 0/10; 01:57 BP 198 / 93; Pulse 80; Resp 18 S; Pulse Ox 99% on R/A; jd3 02:49 BP 132 / 84; Pulse 80; Resp 17 S; Pulse Ox 100% on R/A; jd3 01:20 Body Mass Index 19.77 (58.97 kg, 172.72 cm) bb ED Course: 01:01 Patient arrived in ED. cl3 01:02 Chris Early PA is PHCP. jr8 01:02 Tolu Hadley MD is Attending Physician. jr8 01:15 Triage completed. bb 01:20 Arm band placed on Patient placed in an exam room, on a stretcher, on monitor car operator, bb on pulse oximetry. EKG completed in triage. Results shown to MD. 01:22 Arya Rodriguez, RN is Primary Nurse. jd3 01:24 Patient has correct armband on for positive identification. Placed in gown. Bed in low jd3 position. Call light in reach. Side rails up X 1. Adult w/ patient. 01:46 XRAY Chest (1 view) In Process Unspecified. EDMS 01:56 Inserted saline lock: 20 gauge in left antecubital area, using aseptic technique. Blood jd3 collected. placed by Manda WHARTON. 02:49 Inserted. jd3 02:50 No provider procedures requiring assistance completed. mg2 03:27 IV discontinued, intact, bleeding controlled, No redness/swelling at site. Pressure mg2 dressing applied. Administered Medications: 01:42 Drug: hydrALAZINE 10 mg Route: IV; Rate: calculated rate; Site: left antecubital; jd3 03:26 Follow up: Response: No adverse reaction; Blood pressure is lowered; IV Status: mg2 Completed infusion 01:43 Drug: Aspirin Chewable Tablet 324 mg Route: PO; jd3 03:25 Follow up: Response: No adverse reaction mg2 01:56 Drug: GI Cocktail without - (Maalox Suspension 30 ml, Lidocaine Liquid 2 % 15 jd3 ml) Route: PO; 03:25 Follow up: Response: No adverse reaction mg2 03:00 Drug: Benadryl 25 mg Route: IVP; Site: left antecubital; jd3 03:25 Follow up: Response: No adverse reaction mg2 03:00 Drug: Reglan 10 mg Route: IVP; Site: left antecubital; jd3 03:25 Follow up: Response: No adverse reaction mg2 Outcome: 02:46 Discharge ordered by . jr8 03:27 Discharged to home ambulatory. mg2 03:27 Condition: stable 03:27 Discharge instructions given to patient, Instructed on discharge instructions, follow up and referral plans. Demonstrated understanding of instructions, follow-up care. 03:27 Patient left the ED. mg2 Signatures: Dispatcher [employer] Chasity Newton RN RN bb Chris Early PA PA jr8 Arya Rodriguez RN RN jd3 Austin Spangler RN RN mg2 Dipti Emmanuel cl3 Corrections: (The following items were deleted from the chart) 01:57 01:56 Inserted saline lock: 20 gauge in left antecubital area, using aseptic technique. jd3 Blood collected. jd3
--- NOTE | 2019-04-07 02:47 | EDPHYS ---
Physician Documentation [facility] Name: Mikhail Herrera Age: 58 yrs Sex: Male : 1960 Arrival Date: 04/07/2019 Time: 01:01 Bed 8 Private MD: ED Physician Tolu Hadley HPI: 04/06 01:35 This 58 yrs old Male presents to ER via Ambulatory with complaints of High jr8 Blood Pressure. 01:35 The patient has elevated blood pressure and discovered this at home. Onset: The jr8 symptoms/episode began/occurred acutely, today. Modifying factors: The symptoms are aggravated by activity. Associated signs and symptoms: Pertinent positives: headache, palpitations . Severity of symptoms: At its worst the blood pressure was moderate, in the emergency department the blood pressure is unchanged. The patient has experienced a previous episode. The patient has not recently seen a physician. Historical: - Allergies: 01:20 No Known Allergies; bb - Home Meds: 01:20 levothyroxine oral [Active]; lisinopril Oral [Active]; Hydroxyzine Oral [Active]; bb aspirin 81 mg Oral chew 1 tab once daily [Active]; - PMHx: 01:20 Cancer; atypical squamous cell; Fibromyalgia; Hypertension; Hypothyroidism; bb - PSHx: 01:20 2 throat surgeries with tonsillectomy; Knee surgery; left cataract; right hand; bb - Immunization history:: Adult Immunizations up to date. - Social history:: Smoking status: Patient reports the use of cigarette tobacco products, smokes one-half pack cigarettes per day, Patient uses alcohol, occasionally. street drugs, marijuana. ROS: 01:35 Eyes: Negative for injury, pain, redness, and discharge, ENT: Negative for injury, jr8 pain, and discharge, Neck: Negative for injury, pain, and swelling, Respiratory: Negative for shortness of breath, cough, wheezing, and pleuritic chest pain, Abdomen/GI: Negative for abdominal pain, nausea, vomiting, diarrhea, and constipation, Back: Negative for injury and pain, MS/Extremity: Negative for injury and deformity, Skin: Negative for injury, rash, and discoloration. 01:35 Cardiovascular: Positive for palpitations, Negative for chest pain, edema, orthopnea, palpitations. 01:35 Neuro: Positive for headache. Exam: 01:35 Eyes: Pupils equal round and reactive to light, extra-ocular motions intact. Lids and jr8 lashes normal. Conjunctiva and sclera are non-icteric and not injected. Cornea within normal limits. Periorbital areas with no swelling, redness, or edema. ENT: Nares patent. No nasal discharge, no septal abnormalities noted. Tympanic membranes are normal and external auditory canals are clear. Oropharynx with no redness, swelling, or masses, exudates, or evidence of obstruction, uvula midline. Mucous membranes moist. Neck: Trachea midline, no thyromegaly or masses palpated, and no cervical lymphadenopathy. Supple, full range of motion without nuchal rigidity, or vertebral point tenderness. No Meningismus. Cardiovascular: Regular rate and rhythm with a normal S1 and S2. No gallops, murmurs, or rubs. Normal PMI, no JVD. No pulse deficits. Respiratory: Lungs have equal breath sounds bilaterally, clear to auscultation and percussion. No rales, rhonchi or wheezes noted. No increased work of breathing, no retractions or nasal flaring. Abdomen/GI: Soft, non-tender, with normal bowel sounds. No distension or tympany. No guarding or rebound. No evidence of tenderness throughout. Back: No spinal tenderness. No costovertebral tenderness. Full range of motion. Skin: Warm, dry with normal turgor. Normal color with no rashes, no lesions, and no evidence of cellulitis. MS/ Extremity: Pulses equal, no cyanosis. Neurovascular intact. Full, normal range of motion. Neuro: Awake and alert, GCS 15, oriented to person, place, time, and situation. Cranial nerves II-XII grossly intact. Motor strength 5/5 in all extremities. Sensory grossly intact. Cerebellar exam normal. Normal gait. Vital Signs: 01:13 BP 188 / 110; Pulse 72; Resp 16 S; Temp 97.5(O); Pulse Ox 100% on R/A; Weight 58.97 kg bb (R); Height 5 ft. 8 in. (172.72 cm) (R); Pain 0/10; 01:20 BP 188 / 110; Pulse 72; Resp 16 S; Temp 97.5(O); Pulse Ox 100% on R/A; Weight 58.97 kg bb (R); Height 5 ft. 8 in. (172.72 cm) (R); Pain 0/10; 01:57 BP 198 / 93; Pulse 80; Resp 18 S; Pulse Ox 99% on R/A; jd3 02:49 BP 132 / 84; Pulse 80; Resp 17 S; Pulse Ox 100% on R/A; jd3 01:20 Body Mass Index 19.77 (58.97 kg, 172.72 cm) bb MDM: 01:12 Patient medically screened. jr8 02:45 Data reviewed: vital signs, nurses notes, lab test result(s), EKG, radiologic studies, jr8 plain films. Data interpreted: Pulse oximetry: on room air is 99 %. Interpretation: normal. Counseling: I had a detailed discussion with the patient and/or guardian regarding: the historical points, exam findings, and any diagnostic results supporting the discharge/admit diagnosis, lab results, radiology results, the need for outpatient follow up, a family practitioner, to return to the emergency department if symptoms worsen or persist or if there are any questions or concerns that arise at home. Response to treatment: the patient's symptoms have markedly improved after treatment. 04/06 01:21 Order name: Basic Metabolic Panel; Complete Time: 02:28 04/06 01:21 Order name: CBC with Diff; Complete Time: 02:28 04/06 01:21 Order name: LFT's; Complete Time: 02:28 04/06 01:21 Order name: Magnesium; Complete Time: 02:28 04/06 01:21 Order name: NT PRO-BNP; Complete Time: 02:28 04/06 01:21 Order name: PT-INR; Complete Time: 02:28 04/06 01:21 Order name: Troponin (emerg Dept Use Only); Complete Time: 02:28 04/06 01:21 Order name: XRAY Chest (1 view) 04/06 01:21 Order name: EKG; Complete Time: 01:22 04/06 01:21 Order name: Cardiac monitoring; Complete Time: :39 04/06 01:21 Order name: EKG - Nurse/Tech; Complete Time: :39 04/06 01:21 Order name: IV Saline Lock; Complete Time: 04/06 01:21 Order name: Labs collected and sent; Complete Time: :39 04/06 01:21 Order name: O2 Per Protocol; Complete Time: :39 04/06 01:21 Order name: O2 Sat Monitoring; Complete Time: :39 Administered Medications: 01:42 Drug: hydrALAZINE 10 mg Route: IV; Rate: calculated rate; Site: left antecubital; jd3 03:26 Follow up: Response: No adverse reaction; Blood pressure is lowered; IV Status: mg2 Completed infusion 01:43 Drug: Aspirin Chewable Tablet 324 mg Route: PO; jd3 03:25 Follow up: Response: No adverse reaction mg2 01:56 Drug: GI Cocktail without - (Maalox Suspension 30 ml, Lidocaine Liquid 2 % 15 jd3 ml) Route: PO; 03:25 Follow up: Response: No adverse reaction mg2 03:00 Drug: Benadryl 25 mg Route: IVP; Site: left antecubital; jd3 03:25 Follow up: Response: No adverse reaction mg2 03:00 Drug: Reglan 10 mg Route: IVP; Site: left antecubital; jd3 03:25 Follow up: Response: No adverse reaction mg2 Disposition: 07:24 Co-signature as Attending Physician, Tolu Hadley MD I agree with the assessment and tw4 plan of care. Disposition: 04/07/19 02:46 Discharged to Home. Impression: Hypertensive Urgency. - Condition is Stable. - Discharge Instructions: Hypertension. - Medication Reconciliation Form, Thank You Letter, Antibiotic Education, Prescription Opioid Use form. - Follow up: Private Physician; When: 2 - 3 days; Reason: Recheck today's complaints, Continuance of care, Re-evaluation by your physician. - Problem is new. - Symptoms have improved. Signatures: Dispatcher [employer] Chasity Newton RN RN bb Roszak, Josh, PA PA jr8 Arya Rodriguez RN RN jd3 Wadley, Terrence, MD MD tw4 Austin Spangler RN RN mg2 Corrections: (The following items were deleted from the chart) 03:27 02:46 04/07/2019 02:46 Discharged to Home. Impression: Hypertensive Urgency. Condition mg2 is Stable. Forms are Medication Reconciliation Form, Thank You Letter, Antibiotic Education, Prescription Opioid Use. Follow up: Private Physician; When: 2 - 3 days; Reason: Recheck today's complaints, Continuance of care, Re-evaluation by your physician. Problem is new. Symptoms have improved. jr8
[2019-04-07] MEDS ORDERED: METOCLOPRAMIDE 10 MG/2mL INJ ONE (02:57)
[2019-04-07] MEDS ORDERED: DIPHENHYDRAMINE 50 MG/ML VIAL ONE (02:57)
[2019-04-07 03:38] VITALS: TEMP 97.5
[2019-04-07 03:42] VITALS: BP 132/84; O2SAT 100
--- NOTE | 2019-04-07 12:00 | RAD REPORT ---
EXAM DESCRIPTION: RAD - Chest Single View - 04/07/2019 1:47 am CLINICAL HISTORY: CHEST PAIN Chest pain. COMPARISON: Chest Single View dated 03/07/2019 FINDINGS: Portable technique limits examination quality. The lungs are grossly clear. The heart is normal in size. No displaced fractures. IMPRESSION: No acute intrathoracic process suspected.
--- NOTE | 2019-04-08 15:37 | EKG ---
Test Date: 2019-04-07 Test Time: 01:49:58 Marzipan Maker: DIANE MEASUREMENT RESULTS: Intervals: Rate: 70 WV: 164 QRSD: 84 QT: 390 QTc: 421 [place]: P: 84 WV: 164 QRS: 61 T: 65 INTERPRETIVE STATEMENTS: Normal sinus rhythm Septal infarct, age undetermined Abnormal ECG Compared to ECG 03/07/2019 00:09:07 Myocardial infarct finding now present Sinus bradycardia no longer present Left ventricular hypertrophy no longer present Electronically Signed On 04-08-19 15:36:39 HOG SCALDER by Kevin Andrews
== END 2019-04-07 03:27 | disposition home or self-care (01) ==
LOC: ER 00:57
DX: I16.0 Hypertensive urgency (principal); E03.9 Hypothyroidism, unspecified; I10 Essential (primary) hypertension; Z85.9 Personal history of malignant neoplasm, unspecified
CPT/HCPCS: 96365; 93005; 85025; 80048; 36415; 83735; 85610; 80076; 84484; 83880; 71045; 96375; 99284; 96366; J0360; J2765; J1200